=== PATIENT | male | born 1970 | race Caucasian/White ===

== ENCOUNTER 2019-01-31 12:50 | Emergency (ER) | payer SELFPAY ==
[~2019-01-31] VITALS: Ht 185.4 cm; Wt 101.6 kg
--- NOTE | 2019-01-31 13:15 | NUR ---
BIB RA, F[place] [address] [place] TOWARDS [facility] AND C/O BODY PAIN, NOTED REDNESS ON THE L EYE. PATIENT A/OX3, NO DISTRESS NOTED, PLACED ON THE MONITOR, BREATHING EVEN AND UNLABORED, NO SOB NOTED. AWAITING FOR MD TATE.
[2019-01-31] MEDS ORDERED: IBUPROFEN 400 MG TABLET PO ONE (13:30)
[2019-01-31] MEDS ORDERED: IBUPROFEN 400 MG TABLET ONE (13:53)
--- NOTE | 2019-01-31 16:07 | NUR ---
PT WAS SEEN BY JUDIT, SOFA BACK UPHOLSTERER AND REC'D ALL RESOURCES. PT REFUSED PLACEMENT. PT REC'D NEW SHOES, FOOD, AND WILL GET A TAP CARD. PT REFUSED PLACEMENT. ARM BAND WAS REMOVED AND PT AMBULATED TO THE LOBBY WITH A STEADY GAIT. VSS
[2019-01-31 16:12] VITALS: BP 119/75
--- NOTE | 2019-01-31 16:18 | NUR ---
Social service consult requested by ER staff for homelessness. Pt is a 48 year old male who was bib [place] [address] [place] [address] [place] to [place] towards [facility]. Per ER note pt complains of body pain and redness in left eye. Sw met with pt at bedside, pt was calm and alert speaking in a low tone. Pt reports he has been homeless for only one day, pt is missing shoes, sw provided pt with shoes from clothing cabinet. Pt is aox4, pt reports he is a [place] and experiences PTSD. Pt reports drinking beer and smoking marijuana however states he does not have a problem and declines substance abuse referrals. Pt declines any Suicidal or Homicidal idealizations at this time. Social work offered pt resources for homeless shelters, homeless directory and health care clinics. Pt accepted all resources, social work informed pt of [facility] and local pickups. Pt stated his emergency contact is his mother Praveena ([phone]). Pt was provided a meal, behavioral, health clinics, pt signed homeless waiver and original left in pts chart. Pt was provided information and instructions on how to apply for [facility], pt was also provided with shoes from clothing cabinet.
== END 2019-01-31 16:12 | disposition home or self-care (01) ==
LOC: ER 12:56
DX: M79.672 Pain in left foot (principal); M79.671 Pain in right foot; F43.10 Post-traumatic stress disorder, unspecified
CPT/HCPCS: 99283; A4606